=== PATIENT | male | born 1980 | race Caucasian/White ===

== ENCOUNTER 2025-02-06 16:59 | Inpatient (IN) | payer MEDICARE, OTHER ==
[~2025-02-06] VITALS: Ht 167.6 cm; Wt 86.6 kg
[2025-02-06] MEDS ORDERED: methylPREDNISolone SOD SUCC 125 MG/2 ML VIAL ONE (17:52)
[2025-02-06] MEDS: methylPREDNISolone SOD SUCC 125 MG/2 ML VIAL IV ONE (17:57)
[2025-02-06 18:00] LABS: BASOPHILS % (AUTO) 0.3 % (0.0-2.0); EOSINOPHILS # (AUTO) 0.1 K/uL (0.0-0.7); EOSINOPHILS % (AUTO) 0.5 % (0.0-7.0); HEMATOCRIT 44.7 % (36.7-47.1); HEMOGLOBIN 15.1 g/dL (12.5-16.3); LYMPHOCYTES # (AUTO) 1.6 K/uL (0.8-4.8); LYMPHOCYTES % (AUTO) 14.4 % (20.5-51.5); MEAN CORPUSCULAR HEMOGLOBIN 28.5 uug (23.8-33.4); MEAN CORPUSCULAR HGB CONC 34 g/dL (32.5-36.3); MEAN CORPUSCULAR VOLUME 84.5 fL (73.0-96.2); MONOCYTES # (AUTO) 1.2 K/uL (0.1-1.30); MONOCYTES % (AUTO) 10.8 % (0.0-11.0); NEUTROPHILS # (AUTO) 8.2 K/uL (1.8-8.9); PLATELET COUNT (AUTO) 230 K/uL (152-348); RED BLOOD CELL COUNT(AUTO) 5.29 MIL/uL (4.06-5.63); RED CELL DISTRIBUTION WIDTH 13.6 % (12.1-16.2)
[2025-02-06 18:01] LABS: DIFFERENTIAL COMMENT 1
[2025-02-06 18:07] LABS: ABG BASE EXCESS 0.1 mmol/L (-2.0-3.0); ABG HCO3 22.1 mmol/L (21.0-28.0); ABG PCO2 29.3 mmHg (35.0-48.0); ABG PH 7.495 (7.350-7.450); ABG PO2 64.6 mmHg (83.0-108.0); ABG SITE RIGHT RADIAL; ABG TOTAL HEMOGLOBIN 15.8 G/dL (13.5-17.5); AaDO2 94.5 mmHg; COHb 0.4 % (0.5-1.5); MetHb 0.2 % (0.0-1.5)
[2025-02-06 18:09] LABS: CALCIUM 8.8 mg/dL (8.5-10.1); CARBON DIOXIDE 30 mmol/L (21-32); CHLORIDE 101 mmol/L (98-107); CREATININE 0.9 mg/dL (0.6-1.3); GLUCOSE 126 mg/dL (74-106); POTASSIUM 4.4 mmol/L (3.5-5.1); SODIUM SERUM 139 mmol/L (136-145); UREA NITROGEN, BLOOD 10 mg/dL (7-18)
[2025-02-06] MEDS ORDERED: ALBUTEROL SULFATE 2.5 MG/3 ML NEBU ONE (18:18)
[2025-02-06] MEDS ORDERED: IPRATROPIUM BROMIDE 0.5 MG/2.5 ML NEBU ONE (18:18)
[2025-02-06 18:19] LABS: LACTIC ACID 2.7 mmol/L (0.4-2.0)
[2025-02-06 18:24] LABS: ALANINE AMINOTRANSFERASE 79 U/L (16-63); ALBUMIN 2.7 g/dL (3.4-5.0); ALKALINE PHOSPHATASE 73 U/L (50-136); ASPARTATE AMINOTRANSFERASE 52 U/L (15-37); BILIRUBIN,DIRECT 0.2 mg/dL (0.0-0.2); BILIRUBIN,TOTAL 0.5 mg/dL (0.2-1.0); TOTAL PROTEIN, SERUM 7.3 g/dL (6.4-8.2)
[2025-02-06 18:25] VITALS: O2SAT 100
[2025-02-06] MEDS: IPRATROPIUM BROMIDE 0.5 MG/2.5 ML NEBU NEB ONE (18:30)
[2025-02-06] MEDS: ALBUTEROL SULFATE 2.5 MG/3 ML NEBU NEB ONE (18:30)
[2025-02-06 18:32] LABS: NT-PRO BNP 7 pg/mL (0-125)
[2025-02-06] MEDS: IV NORMAL SALINE 1000 ML BAG IV ONE (18:35)
[2025-02-06] MEDS ORDERED: CEFTRIAXONE /D5W 50ML IVPB **ER PYXIS IV ONE (18:37)
[2025-02-06] MEDS: CEFTRIAXONE 1 G in IV DEXTROSE 5% 50 ML IV ONE (18:38)
[2025-02-06] MEDS ORDERED: AZITHROMYCIN 500MG/ D5W 250ML IVPB **ER PYXIS ONLY IV ONE (18:41)
[2025-02-06] MEDS: AZITHROMYCIN IV 500 MG in IV DEXTROSE 5% 250 ML IV ONE (18:51)
[2025-02-06 19:00] VITALS: O2SAT 100
[2025-02-06] MEDS ORDERED: MORPHINE SULFATE 2 MG/1 ML DISP.SYRIN IVP PRN (19:15)
[2025-02-06] MEDS ORDERED: hydrALAZINE HCL 20 MG/1 ML VIAL IV PRN (19:15)
[2025-02-06] MEDS ORDERED: ACETAMINOPHEN 325 MG TABLET PO PRN (19:15)
[2025-02-06] MEDS ORDERED: ONDANSETRON 4 MG/2 ML VIAL IV PRN (19:15)
[2025-02-06] MEDS: IV NS 1000 ML 1,000 ML IV SCH (19:49)
[2025-02-06] MEDS ORDERED: ALBUTEROL SULFATE 2.5 MG/3 ML NEBU NEB PRN (20:15)
[2025-02-06 23:50] LABS: *BILIRUBIN,URIN NEGATIVE (NEGATIVE); *BLOOD, URINE NEGATIVE (NEGATIVE); *CLARITY,URINE CLEAR (CLEAR); *COLOR,URINE YELLOW (YELLOW); *KETONES,URINE NEGATIVE (NEGATIVE); *PROTEIN,URINE NEGATIVE (NEGATIVE); LEUKOCYTE ESTERASE ,URINE NEGATIVE (NEGATIVE); NITRITE, URINE NEGATIVE (NEGATIVE); UGLUCOSE NEGATIVE (NEGATIVE)
[2025-02-07] VITALS (10 sets, daily range): BP systolic 109–139; BP diastolic 62–97; TEMP 97.6–98; O2SAT 93–99
[2025-02-07] MEDS ORDERED: levoFLOXacin 750MG/D5W 150 ML IV ONE (06:12)
[2025-02-07] MEDS: levoFLOXacin 750MG/D5W 750 MG in PREMIXED 1 EACH IV SCH (06:49)
[2025-02-07 07:29] LABS: BASOPHILS % (AUTO) 0.2 % (0.0-2.0); HEMATOCRIT 43.1 % (36.7-47.1); HEMOGLOBIN 14.8 g/dL (12.5-16.3); LYMPHOCYTES # (AUTO) 1.1 K/uL (0.8-4.8); LYMPHOCYTES % (AUTO) 12.4 % (20.5-51.5); MEAN CORPUSCULAR HEMOGLOBIN 28.9 uug (23.8-33.4); MEAN CORPUSCULAR HGB CONC 34 g/dL (32.5-36.3); MONOCYTES # (AUTO) 0.3 K/uL (0.1-1.30); MONOCYTES % (AUTO) 2.9 % (0.0-11.0); NEUTROPHILS # (AUTO) 7.3 K/uL (1.8-8.9); NEUTROPHILS % (AUTO) 84.5 % (38.5-71.5); PLATELET COUNT (AUTO) 232 K/uL (152-348); RED BLOOD CELL COUNT(AUTO) 5.13 MIL/uL (4.06-5.63); RED CELL DISTRIBUTION WIDTH 13.6 % (12.1-16.2); WHITE BLOOD COUNT (AUTO) 8.6 K/uL (3.6-10.2)
[2025-02-07 07:46] LABS: DIFFERENTIAL COMMENT 1
[2025-02-07 07:54] LABS: ALANINE AMINOTRANSFERASE 73 U/L (16-63); ALBUMIN 2.5 g/dL (3.4-5.0); ALKALINE PHOSPHATASE 59 U/L (50-136); ASPARTATE AMINOTRANSFERASE 40 U/L (15-37); BILIRUBIN,TOTAL 0.4 mg/dL (0.2-1.0); CALCIUM 8.1 mg/dL (8.5-10.1); CARBON DIOXIDE 24 mmol/L (21-32); CHLORIDE 106 mmol/L (98-107); CREATININE 0.6 mg/dL (0.6-1.3); GLUCOSE 171 mg/dL (74-106); PHOSPHOROUS 3.7 mg/dL (2.5-4.9); POTASSIUM 4.3 mmol/L (3.5-5.1); SODIUM SERUM 141 mmol/L (136-145); TOTAL PROTEIN, SERUM 6.7 g/dL (6.4-8.2); UREA NITROGEN, BLOOD 12 mg/dL (7-18)
[2025-02-07] MEDS ORDERED: methylPREDNISolone SOD SUCC 125 MG/2 ML VIAL IV SCH (10:00)
[2025-02-07] MEDS: methylPREDNISolone SOD SUCC 40 MG/ML VIAL IV SCH (10:34)
[2025-02-07] MEDS: FLUTICASONE/VILANTEROL 1 EACH BLST.W.DEV INH SCH (11:20)
[2025-02-07] MEDS: ALBUTEROL SULFATE 2.5 MG/3 ML NEBU NEB SCH (13:21)
[2025-02-07] MEDS: IPRATROPIUM BROMIDE 0.5 MG/2.5 ML NEBU NEB SCH (13:21)
[2025-02-08 06:00] VITALS: BP 107/63; TEMP 97.8; O2SAT 95
[2025-02-08 07:28] LABS: BASOPHILS % (AUTO) 0.1 % (0.0-2.0); HEMATOCRIT 41.6 % (36.7-47.1); HEMOGLOBIN 13.9 g/dL (12.5-16.3); LYMPHOCYTES # (AUTO) 1.5 K/uL (0.8-4.8); MEAN CORPUSCULAR HEMOGLOBIN 28.2 uug (23.8-33.4); MEAN CORPUSCULAR HGB CONC 33 g/dL (32.5-36.3); MEAN CORPUSCULAR VOLUME 84.8 fL (73.0-96.2); MONOCYTES # (AUTO) 0.7 K/uL (0.1-1.30); MONOCYTES % (AUTO) 3.4 % (0.0-11.0); NEUTROPHILS # (AUTO) 19.4 K/uL (1.8-8.9); NEUTROPHILS % (AUTO) 89.5 % (38.5-71.5); PLATELET COUNT (AUTO) 254 K/uL (152-348); RED BLOOD CELL COUNT(AUTO) 4.91 MIL/uL (4.06-5.63); RED CELL DISTRIBUTION WIDTH 13.3 % (12.1-16.2); WHITE BLOOD COUNT (AUTO) 21.6 K/uL (3.6-10.2)
[2025-02-08 07:32] LABS: DIFFERENTIAL COMMENT 1
[2025-02-08 07:40] VITALS: O2SAT 95
[2025-02-08 07:41] LABS: CALCIUM 8.1 mg/dL (8.5-10.1); CREATININE 0.7 mg/dL (0.6-1.3); MAGNESIUM 2.3 mg/dL (1.8-2.4); PHOSPHOROUS 3.4 mg/dL (2.5-4.9); POTASSIUM 4.2 mmol/L (3.5-5.1)
[2025-02-08 07:55] VITALS: O2SAT 100
[2025-02-08] MEDS ORDERED: LEVO500T90 PO (09:17)
[2025-02-08] MEDS ORDERED: METH4TAB3 PO (09:17)
[2025-02-08] MEDS ORDERED: ALBU8.5H8 INH (09:17)
[2025-02-08 12:59] VITALS: BP 109/60; TEMP 97.6; O2SAT 96
[2025-02-08 13:20] VITALS: O2SAT 96
[2025-02-08 13:35] VITALS: O2SAT 99
== END 2025-02-08 17:15 | disposition home or self-care (01) | DRG 720 ==
LOC: ER 17:04 → TELE3 18:00 → MEDSURG3 02-07 10:45
PROVIDERS: ADMIT Internal Medicine; ATTEND Internal Medicine
DX: A41.9 Sepsis, unspecified organism (principal); J96.01 Acute respiratory failure with hypoxia; E87.20 Acidosis, unspecified; J15.9 Unspecified bacterial pneumonia; E88.09 Other disorders of plasma-protein metabolism, not elsewhere classified; J44.0 Chronic obstructive pulmonary disease with (acute) lower respiratory infection; R65.20 Severe sepsis without septic shock; F17.210 Nicotine dependence, cigarettes, uncomplicated; Z71.6 Tobacco abuse counseling; E11.65 Type 2 diabetes mellitus with hyperglycemia; J20.9 Acute bronchitis, unspecified
CPT/HCPCS: 36415; 36600; 71045; 82803; 83605; 83735; 84100; 84484; 85025; 85730; 87040; 87086; 94640; 94664; 94760; A4606; A4663; G0378; J0456; J0696; J1956; J2919; J3590; J7040

== ENCOUNTER 2025-02-09 15:01 | Emergency (ER) | payer MEDICARE ==
[~2025-02-09] VITALS: Ht 175.3 cm; Wt 77.1 kg
[~2025-02-09 15:01] MED LIST: ALBU8.5H8 INH; LEVO500T90 PO; METH4TAB3 PO
[2025-02-09] MEDS ORDERED: predniSONE 50 MG TABLET ONE (16:38)
[2025-02-09] MEDS ORDERED: levoFLOXacin 750 MG TABLET ONE (16:38)
[2025-02-09] MEDS: levoFLOXacin 750 MG TABLET PO ONE (16:42)
[2025-02-09] MEDS: predniSONE 50 MG TABLET PO ONE (16:42)
[2025-02-09 16:58] VITALS: BP 120/71; O2SAT 95
== END 2025-02-09 17:00 | disposition home or self-care (01) ==
LOC: ER 15:01
DX: J18.1 Lobar pneumonia, unspecified organism (principal); F17.200 Nicotine dependence, unspecified, uncomplicated; Z79.899 Other long term (current) drug therapy
CPT/HCPCS: 99283; J7512; A4606; A4663